=== PATIENT | male | born 1965 | race African-American/Black ===

== ENCOUNTER 2019-10-04 15:49 | Inpatient (IN) | payer OTHER ==
[~2019-10-04] VITALS: Ht 180.3 cm; Wt 131.5 kg
--- NOTE | 2019-10-04 15:59 | NUR ---
PACIENTE ALERTA,ACTIVO Y ORIENTADO.REFIERE PRESENTO DOLOR DE PECHO DESDE CARLITOS QUE INTENSIFICO HOY EN LA MANANA E INDICA NO SENTIA LADO JASPER DEL CUERPO.
[2019-10-04] MEDS ORDERED: ALDACTONE25 MG (16:02)
[2019-10-04] MEDS ORDERED: ASPIR 8181 MG (16:03)
[2019-10-04] MEDS ORDERED: LIPITOR20 MG (16:03)
[2019-10-04] MEDS ORDERED: AVAPRO300 MG (16:03)
[2019-10-04] MEDS ORDERED: AMLODIPINE BESYL5 MG (16:04)
--- NOTE | 2019-10-04 17:42 | NUR ---
EVALUA PTE. SE ORIENTA A PTE SOBRE TX MEDICO. PTE REFIERE COMPRENDER. SE REALIZAN MUESTRAS DE LABORATORIO BAJO MEDIDAS ASEPTICAS. SE NOTIFICAN PAWEL X Y CT. PROCEDIMIENTOS LLEVADOS A CABO POR .
--- NOTE | 2019-10-04 20:04 | NUR ---
SE EVALUA BP MABUAL 180/[address] DUMONT[address]
--- NOTE | 2019-10-05 07:18 | NUR ---
SE RECIBE AL PACIENTE DE TURNO ANTERIOR ALERTA Y ORIENTADO EN ANTONIO AGUS ESFERAS. PACIENTE CON H/L PATENTE. ACOMPANADO DE UN FAMILIAR. CAMA AL NIVEL MAS BAJO, BARANDAS SUPERIORES ELEVADAS, CABECERA A 45 GRADOS Y FRENOS COLOCADOS. PACIENTE CONSULTADO CON DRA. GRAY.
[2019-10-08] MEDS ORDERED: AMLODIPINE BESY10 MG PO (13:21)
[2019-10-08] MEDS ORDERED: LIPITOR20 MG PO (13:21)
[2019-10-08] MEDS ORDERED: CLOPIDOGREL BIS75 MG PO (13:21)
[2019-10-08] MEDS ORDERED: HYDRALAZINE HCL25 MG PO (13:22)
[2019-10-08] MEDS ORDERED: AVAPRO300 MG PO (13:22)
[2019-10-08] MEDS ORDERED: ASA-EC81 MG PO (13:22)
[2019-10-08] MEDS ORDERED: HYDROCHLOROTHIA25 MG PO (13:22)
== END 2019-10-08 14:43 | disposition home or self-care (01) | DRG 64 ==
LOC: ER 15:49 → SEC-K 10-05 09:18 → MEDJ 10-05 13:54
PROVIDERS: ADMIT Internal Medicine
PROC: B345ZZZ Ultrasonography of Bilateral Common Carotid Arteries (ICD-10-PCS; principal; 2019-10-05)
PROC: B348ZZZ Ultrasonography of Bilateral Internal Carotid Arteries (ICD-10-PCS; 2019-10-05)
PROC: 4A12X4Z Monitoring of Cardiac Electrical Activity, External Approach (ICD-10-PCS; 2019-10-05)
PROC: B246ZZZ Ultrasonography of Right and Left Heart (ICD-10-PCS; 2019-10-05)
DX: I63.59 Cerebral infarction due to unspecified occlusion or stenosis of other cerebral artery (principal); I63.232 Cerebral infarction due to unspecified occlusion or stenosis of left carotid arteries; I69.354 Hemiplegia and hemiparesis following cerebral infarction affecting left non-dominant side; I10 Essential (primary) hypertension; G47.33 Obstructive sleep apnea (adult) (pediatric); E66.8 Other obesity; E78.49 Other hyperlipidemia; I67.82 Cerebral ischemia; R29.710 NIHSS score 10
CPT/HCPCS: 70551

== ENCOUNTER 2022-09-17 18:04 | Emergency (ER) | payer OTHER ==
[~2022-09-17] VITALS: Ht 180.3 cm; Wt 104.3 kg
[~2022-09-17 18:04] MED LIST: ALDACTONE25 MG; AMLODIPINE BESY10 MG PO; AMLODIPINE BESYL5 MG; ASA-EC81 MG PO; ASPIR 8181 MG; AVAPRO300 MG; AVAPRO300 MG PO; CLOPIDOGREL BIS75 MG PO; HYDRALAZINE HCL25 MG PO; HYDROCHLOROTHIA25 MG PO; LIPITOR20 MG; LIPITOR20 MG PO
== END 2022-09-17 22:15 | disposition home or self-care (01) ==
LOC: ER 18:04
DX: R07.9 Chest pain, unspecified (principal); I10 Essential (primary) hypertension